=== PATIENT | male | born 1995 | race Caucasian/White ===

== ENCOUNTER 2020-08-11 11:34 | Emergency (ER) | payer MEDICAID ==
[~2020-08-11] VITALS: Ht 170.2 cm; Wt 55.8 kg
[~2020-08-11 11:34] MED LIST: ABILIFY10 MG PO; MELATONIN5 M1 PO; VITAMIN D1000 UNI1 PO; VYVANSE70 MG PO; ZOLOFT50 MG PO
[2020-08-11] MEDS ORDERED: INDERAL LA120 M1 PO (11:41)
[2020-08-11] MEDS ORDERED: SEROQUEL 100 M100 M1 PO (11:41)
[2020-08-11] MEDS ORDERED: INTUNIV2 MG PO (11:41)
[2020-08-11 12:10] LABS: ABSOLUTE BASOPHILS 0.1 thou/uL (0.0-0.2); ABSOLUTE EOSINOPHILS 0.4 thou/uL (0.0-0.7); ABSOLUTE LYMPHOCYTES 2.2 thou/uL (0.8-5.3); ABSOLUTE MONOCYTES 0.6 thou/uL (0.0-1.2); ABSOLUTE NEUTROPHILS 5.9 thou/uL (1.6-8.1); BASOPHILS 0.8 %; EOSINOPHILS 4.1 %; HEMATOCRIT 53.6 % (42.0-52.0); HEMOGLOBIN 18.4 gm/dL (14.0-18.0); LYMPHOCYTES 24.1 %; MCH 31.1 pg (26.0-34.0); MCHC 34.3 g/dL (28.0-37.0); MCV 90.5 fL (80.0-100.0); MONOCYTES 6.7 %; MPV 7.7 fl. (7.2-11.1); NUCLEATED RBCS 0 /100WBC; PLATELET COUNT* 309 thou/uL (150-400); POLYS 64.3 %; RBC 5.92 mil/uL (4.50-6.00); RDW-CV 12.8 % (10.5-14.5); WBC 9.1 thou/uL (4.0-11.0)
[2020-08-11 12:25] LABS: CALCIUM 9.5 mg/dL (8.5-10.1); CREATININE 1.1 mg/dL (0.6-1.3); POTASSIUM 4.1 mmol/L (3.5-5.1)
[2020-08-11 12:29] LABS: ALBUMIN 4.6 g/dL (3.4-5.0); MAGNESIUM 1.8 mg/dL (1.8-2.4); TOTAL BILIRUBIN 0.7 mg/dL (<0.1-1.0); TOTAL PROTEIN 8.2 g/dL (6.4-8.2)
[2020-08-11 13:55] LABS: URINE BILIRUBIN NEGATIVE (Negative); URINE BLOOD NEGATIVE (Negative); URINE CLARITY CLEAR; URINE COLOR YELLOW; URINE GLUCOSE-RANDOM NEGATIVE (Negative); URINE KETONES NEGATIVE (Negative); URINE LEUKOCYTES-REFLEX NEGATIVE (Negative); URINE NITRITE-REFLEX NEGATIVE (Negative); URINE PROTEIN NEGATIVE (Negative); URINE SPECIFIC GRAVITY 1.015 (1.005-1.030); URINE UROBILINOGEN 0.2 E.U./dl (0.2-1.0)
[2020-08-11 14:01] LABS: AMP/METHAMP Negative (Negative); BARBITURATES Negative (Negative); BENZODIAZEPINES Negative (Negative); COCAINE Negative (Negative); METHADONE Negative (Negative); OPIATES Negative (Negative); PCP Negative (Negative); THC POSITIVE (Negative)
[2020-08-11 15:21] VITALS: BP 115/72
--- NOTE | 2020-08-11 17:16 | EKG ---
[place] [address] ELECTROCARDIOGRAM REPORT Name: ASPENRAULITOGENTRY P Room: [facility]#: [id number] Admission: 08/11/20 Attend Phys: Discharge: 08/11/20 Date of : [birth year] Date of Service: 08/11/20 1208 Report #: [id number] THIS REPORT FOR: //name// [facility] ED Test Date: 2020-08-11 Test Time: 12:08:57 Pat Name: GENTRY VAZQUEZ Department: Room: Gender: Speech Therapy Assistant: [place] : 1995 Requested By: Cintia Hinson Order Number: [id number] MD: Marco Antonio Ceja Measurements Intervals [place] Rate: 49 P: 15 NC: 170 QRS: 92 QRSD: 84 T: 74 QT: 395 QTc: 357 Interpretive Statements Sinus bradycardia st elevation, consider early repolarization No previous ECG available for comparison Electronically Signed On 08-11-2020 17:16:12 CDT by Marco Antonio Ceja [email or web address] <ELECTRONICALLY SIGNED> By: Marco Antonio Ceja MD, [facility] 08/11/20 1716 1208 120 Marco Antonio Ceja MD, [facility] /EPI
== END 2020-08-11 15:22 | disposition home or self-care (01) ==
LOC: M.ERS 11:34
PROVIDERS: Nurse Practitioner Family
DX: R56.9 Unspecified convulsions (principal); R55 Syncope and collapse; F17.210 Nicotine dependence, cigarettes, uncomplicated; Z79.899 Other long term (current) drug therapy